=== PATIENT | male | born 1995 | race Hispanic/Latino ===

== ENCOUNTER 2018-08-24 02:41 | Emergency (ER) | payer OTHER ==
[2018-08-24] MEDS ORDERED: ACETAMINOPHEN EXTRA STRENGTH 500 MG TABLET ONE (03:02)
[2018-08-24] MEDS ORDERED: IBUPROFEN 600 MG TABLET ONE (03:02)
[2018-08-24] MEDS ORDERED: LIDOCAINE HCL 2% VISCOUS 15 ML UDCUP ONE (03:25)
[2018-08-24] MEDS ORDERED: MAG HYDROX/AL HYDROX/SIMETH ES 30 ML SUSP UDCUP ONE (03:25)
== END 2018-08-24 04:12 | disposition home or self-care (01) ==
LOC: EDH 02:41
DX: J10.1 Influenza due to other identified influenza virus with other respiratory manifestations (principal); J45.909 Unspecified asthma, uncomplicated; Z87.891 Personal history of nicotine dependence
CPT/HCPCS: 87804